=== PATIENT | female | born 1980 | race Caucasian/White ===

== ENCOUNTER 2019-02-22 20:26 | Emergency (ER) | payer SELFPAY ==
--- NOTE | 2019-02-22 21:25 | ED Physician Documentation ---
PD HPI UPPER EXT INJURY - Stated complaint Stated Complaint: HAND LAC - Chief complaint Chief Complaint: Laceration - History obtained from History obtained from: Patient - History of Present Illness Location: Right, Hand Type of injury: Laceration Timing - onset: Enter time (19:30), Today Timing - details: Abrupt onset Pain level now: 4 Associated symptoms: No: Numbness, Tingling Similar symptoms before: Has not had sx before Recently seen: Not recently seen - Additonal information Additional information: sustained right hand laceration on mandoline at approximately 7:30 PM tonight. 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 : None HEENT: None Psych: None Musculoskeletal: None Derm: None - Past Surgical History Past Surgical History: Yes /MANPOWER DEVELOPMENT ADVISOR: section, Tubal ligation - Present Medications Home Medications: Ambulatory Orders Medication Instructions Recorded Confirmed Propranolol [Inderal] 40 mg PO DAILY 06/06/15 06/06/15 oxyCODONE/ACET 5/325 [Percocet 5 1 - 2 each PO Q6H PRN #20 tablet 06/06/15 mg/325 mg] - Allergies Allergies/Adverse Reactions: Allergies Allergy/AdvReac Type Severity Reaction Status Date / Time bupropion HCl * AdvReac Unknown Verified 02/22/19 20:31 [From Wellbutrin] tramadol AdvReac Anaphylaxis Verified 02/22/19 20:31 - Social History Does the pt smoke?: Yes Smoking Status: Current every day smoker Does the pt drink ETOH?: No Does the pt have substance abuse?: No - Immunizations Immunizations are current?: Yes - POLST Patient has POLST: No PD ED PE NORMAL - Vitals Vital signs reviewed: Yes - General General: Alert and oriented X 3, No acute distress, Well developed/nourished - Neuro Neuro: No motor deficit, No sensory deficit PD ED PE EXPANDED - Extremities SIDNEY UE/Hands Visual: 1 - laceration (crescentic laceration total length 2 cm) Results - Vitals Vitals: Vital Signs - 24 hr 02/22/19 02/22/19 20:31 22:20 Temperature 36.4 C L Heart Rate 76 70 Respiratory 18 16 Rate Blood Pressure 112/62 122/68 O2 Saturation 100 100 Oxygen O2 Source Room air Procedures - Laceration (location) Hand right Palmar Length in cm: 2 Wound type: Curved, Into subcut fat Neurovascular status: Sensory intact, Motor intact, Vascular intact Tendon involvement: Tendon intact Anesthesia: Lidocaine 1% Wound Preparation: Chlorhexadine Skin layer closure: Nylon, Running Other: Patient tolerated well, No complications, Neurovascular intact, Dressing applied, Tetanus UTD Complexity: Simple PD MEDICAL DECISION MAKING - ED course Complexity details: considered differential, d/w patient Departure - Departure Disposition: 01 Home, Self Care Clinical Impression: Laceration Condition: Good Instructions: ED Laceration Hand Comments: Follow up with your primary care provider in 7-10 days for removal of the stitches Forms: Activity restrictions Discharge Date/Time: 02/22/19 22:22
[2019-02-22] MEDS ORDERED: LIDOCAINE 1% 2 ML VIAL SUBQ STA (21:30)
[2019-02-22] MEDS ORDERED: TETANUS/DIPHTHERIA/PERTUSSIS 0.5 ML SYRINGE IM ONE (21:36)
[2019-02-22] MEDS ORDERED: BACITRACIN ZINC OINT 1 PACKET TOP STA (22:12)
[2019-02-22 22:34] VITALS: BP 122/68
== END 2019-02-22 22:22 | disposition home or self-care (01) ==
LOC: ED 20:26
DX: S61.411A Laceration without foreign body of right hand, initial encounter (principal); W27.4XXA Contact with kitchen utensil, initial encounter; Y93.G1 Activity, food preparation and clean up; I10 Essential (primary) hypertension; F17.200 Nicotine dependence, unspecified, uncomplicated
CPT/HCPCS: 12001; 99282; A9270

== ENCOUNTER 2020-05-04 20:42 | Emergency (ER) | payer BC ==
[2020-05-04 20:55] VITALS: BP 127/83
[2020-05-04 21:20] LABS: BILIRUBIN,URINE NEGATIVE (NEGATIVE); GLUCOSE, URINE (UA) NEGATIVE (NEGATIVE); KETONES,URINE (UA) TRACE mg/dL (NEGATIVE); LEUKOCYTE ESTERASE, URINE NEGATIVE (NEGATIVE); NITRITE,URINE NEGATIVE (NEGATIVE); OCCULT BLOOD,URINE NEGATIVE (NEGATIVE); PH,URINE 6.5 PH (5.0-7.5); PROTEIN,URINE NEGATIVE (NEGATIVE); UROBILINOGEN,URINE 0.2 (NORMAL) E.U./dL (NORMAL)
[2020-05-04 21:21] LABS: CLARITY,URINE CLEAR (CLEAR); HCG UR QUAL NEGATIVE
[2020-05-04 21:25] LABS: BASOPHILS % (AUTO) 0.3 %; EOSINOPHILS # (AUTO) 0.4 10^3/uL (0.0-0.7); EOSINOPHILS % (AUTO) 3.7 %; HCT - HEMATOCRIT 38.9 % (37.0-47.0); LYMPHOCYTES # (AUTO) 2.7 10^3/uL (1.5-3.5); LYMPHOCYTES % (AUTO) 27.7 %; MEAN CORPUSCULAR HEMOGLOBIN 32.2 pg (27.0-31.0); MEAN CORPUSCULAR HGB CONC 33.4 g/dL (32.0-36.0); MEAN CORPUSCULAR VOLUME 96.3 fL (81.0-99.0); MEAN PLATELET VOLUME 10.1 fL (7.9-10.8); MONOCYTES # (AUTO) 0.5 10^3/uL (0.0-1.0); MONOCYTES % (AUTO) 5.4 %; NEUTROPHILS # (AUTO) 6.2 10^3/uL (1.5-6.6); NEUTROPHILS % (AUTO) 62.7 %; PLT - PLATELET COUNT 199 10^3/uL (130-450); RED BLOOD COUNT 4.04 10^6/uL (4.20-5.40); RED CELL DISTRIBUTION WIDTH 12.3 % (12.0-15.0); WHITE BLOOD COUNT 9.8 x10^3/uL (4.8-10.8)
--- NOTE | 2020-05-04 21:37 | ED Physician Documentation ---
History of Present Illness - Chief complaint Chief Complaint: General - Additonal information Additional information: Patient comes emergency department chief complaint of generalized weakness and not feeling well after sleeping only 2 of the last 4 nights. 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 Patient states that she has been getting very little sleep, because she has been having to do so much work on her personal business. Patient states that she also has not been eating much because her stomach has been upset because the stress. She also states that she does not have time to drink much water and so she thinks she may be somewhat dehydrated on top of everything. Patient states she is mainly here because she feels as though she needs to take a little time off work and have a rest. She denies any focal weakness. She states that 2 days ago, she was carrying a vacuum strapped to her back when she suddenly felt generally weak in her knees buckled. The patient states that it only lasted for a couple seconds and then she was able to get right back up, but she has been feeling a little lightheaded and just generally tired since. No fevers or chills. No nausea or vomiting. She states when she tries to eat her stomach goes in knots. No abdominal pain. No dysuria. No cough. No other complaints at this time. Review of Systems Ten Systems: 10 systems reviewed and negative Constitutional: reports: Fatigue Eyes: reports: Reviewed and negative Ears: reports: Reviewed and negative Nose: reports: Reviewed and negative Throat: reports: Reviewed and negative Cardiac: reports: Reviewed and negative Respiratory: reports: Reviewed and negative GI: reports: Reviewed and negative : reports: Reviewed and negative Skin: reports: Reviewed and negative Musculoskeletal: reports: Reviewed and negative Neurologic: reports: Generalized weakness. denies: Focal weakness Psychiatric: reports: Reviewed and negative Endocrine: reports: Reviewed and negative Immunocompromised: reports: Reviewed and negative PD PAST MEDICAL HISTORY - Past Medical History Cardiovascular: Hypertension Respiratory: None Neuro: Seizure disorder Endocrine/Autoimmune: None GI: None NUTRITIONAL SERVICES COOK: None : None HEENT: None Psych: None Musculoskeletal: None Derm: None - Past Surgical History Past Surgical History: Yes /NUTRITIONAL SERVICES COOK: section, Tubal ligation - Present Medications Home Medications: Ambulatory Orders Medication Instructions Recorded Confirmed Propranolol [Inderal] 40 mg PO DAILY 06/06/15 06/06/15 oxyCODONE/ACET 5/325 [Percocet 5 1 - 2 each PO Q6H PRN #20 tablet 06/06/15 mg/325 mg] ARIPiprazole [Abilify Mycite] 15 mg PO DAILY 05/04/20 05/04/20 Dextroamphetamine/Amphetamine 10 mg PO DAILY 05/04/20 05/04/20 [Adderall 10 mg Tablet] lamoTRIgine [LaMICtal] 100 mg PO DAILY 05/04/20 05/04/20 traZODone [Desyrel] 50 mg PO DAILY 05/04/20 05/04/20 - Allergies Allergies/Adverse Reactions: Allergies Allergy/AdvReac Type Severity Reaction Status Date / Time bupropion HCl * AdvReac Unknown Verified 05/04/20 20:49 [From Wellbutrin] tramadol AdvReac Anaphylaxis Verified 05/04/20 20:49 - Social History Does the pt smoke?: No Smoking Status: Never smoker Does the pt drink ETOH?: No Does the pt have substance abuse?: No Substance Use and Type: Marijuana - Immunizations Immunizations are current?: Yes Immunizations: TDAP current <10years - POLST Patient has POLST: No PD ED PE NORMAL - Vitals Vital signs reviewed: Yes - General General: Alert and oriented X 3, No acute distress, Other (Thin woman, otherwise well-appearing, in no apparent distress.) - HEENT HEENT: Atraumatic, PERRL, EOMI, Moist mucous membranes - Neck Neck: Supple, no meningeal sign - Cardiac Cardiac: RRR, No murmur, Strong equal pulses - Respiratory Respiratory: No respiratory distress, Clear bilaterally - Abdomen Abdomen: Soft, Non tender, Non distended - Derm Derm: Normal color, Warm and dry, No rash - Extremities Extremities: No deformity - Neuro Neuro: Alert and oriented X 3 - Psych Psych: Normal mood, Normal affect Results - Vitals Vitals: Vital Signs - 24 hr 05/04/20 05/04/20 20:49 21:03 Temperature 36.5 C 36.5 C Heart Rate 72 72 Respiratory 16 16 Rate Blood Pressure 127/83 H 127/83 H O2 Saturation 98 98 Oxygen O2 Source Room air - Labs Labs: Laboratory Tests 05/04/20 05/04/20 05/04/20 21:01 21:08 21:18 WBC 9.8 RBC 4.04 L Hgb 13.0 Hct 38.9 MCV 96.3 MCH 32.2 H MCHC 33.4 RDW 12.3 Plt Count 199 MPV 10.1 Neut # (Auto) 6.2 Lymph # (Auto) 2.7 [place] # (Auto) 0.5 Eos # (Auto) 0.4 Baso # (Auto) 0.0 Absolute Nucleated RBC 0.00 Nucleated RBC % 0.0 POC Whole Bld Glucose 112 H Urine Color YELLOW Urine Clarity CLEAR Urine pH 6.5 Ur Specific [place] 1.020 Urine Protein NEGATIVE Urine Glucose (UA) NEGATIVE Urine Ketones TRACE Urine Occult Blood NEGATIVE Urine Nitrite NEGATIVE Urine Bilirubin NEGATIVE Urine Urobilinogen 0.2 (NORMAL) Ur Leukocyte Esterase NEGATIVE Ur Microscopic Review NOT INDICATED Urine Culture Comments NOT INDICATED Urine HCG, Qual NEGATIVE PD MEDICAL DECISION MAKING - ED course Complexity details: considered differential, d/w patient ED course: I discussed with the patient that it is very important for her to get enough sleep and to be sure to get good nutrition and drink plenty of water. The patient has not been doing any of these things, and I suspect her symptoms are most likely secondary to all of this. 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 She states that she has 2 days off after tomorrow and thinks that she can get rested enough to feel ready to go back to work after the weekend. I feel this is reasonable as the patient is overall fairly well-appearing. We have also discussed the importance of basic health principles including exercise and maintenance of her health. We discussed the usual indications for return and the need for follow-up in primary care. Departure - Departure Disposition: 01 Home, Self Care Clinical Impression: Problems related to lack of adequate sleep, Generalized weakness Condition: Stable Instructions: ED Insomnia, ED Weakness [facility] Follow-Up: Javier Gutierrez MD [Credentialed Staff Provider] - Forms: Activity restrictions
[2020-05-04 21:38] LABS: ALBUMIN 4.5 g/dL (3.2-5.5); ALBUMIN/GLOBULIN RATIO 1.6 (1.0-2.2); BILIRUBIN,TOTAL 0.4 mg/dL (0.2-1.0); CALCIUM 9.9 mg/dL (8.5-10.3); CREATININE 0.9 mg/dL (0.4-1.0); POTASSIUM 3.9 mmol/L (3.5-5.0); TOTAL PROTEIN 7.3 g/dL (6.7-8.2)
== END 2020-05-04 21:42 | disposition home or self-care (01) ==
LOC: ED 20:42
DX: R53.1 Weakness (principal); Z72.820 Sleep deprivation; I10 Essential (primary) hypertension
CPT/HCPCS: 36415; 80053; 81001; 81003; 81025; 85025; 87086; 99283; 99284

== ENCOUNTER 2020-09-20 19:35 | Emergency (ER) | payer OTHER, BC ==
[2020-09-20 19:47] VITALS: BP 107/70
[2020-09-20] MEDS ORDERED: KETOROLAC 60 MG/2 ML VIAL IM STA (20:29)
--- NOTE | 2020-09-20 20:32 | ED Physician Documentation ---
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 It occurred when she was making a bed. She denies any previous history of low back pain. No recent falls or trauma. No fevers. No saddle anesthesia or loss of bowel or bladder function. Past medical history includes a seizure disorder for which she takes Lamictal. Review of Systems Constitutional: reports: Reviewed and negative Ears: reports: Reviewed and negative Nose: reports: Reviewed and negative Throat: reports: Reviewed and negative Cardiac: reports: Reviewed and negative Respiratory: reports: Reviewed and negative GI: reports: Reviewed and negative : reports: Reviewed and negative Skin: reports: Reviewed and negative Musculoskeletal: reports: Back pain Neurologic: reports: Reviewed and negative PD PAST MEDICAL HISTORY - Past Medical History Cardiovascular: Hypertension Respiratory: None Neuro: Seizure disorder Endocrine/Autoimmune: None GI: None 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 : None HEENT: None Psych: None Musculoskeletal: None Derm: None - Past Surgical History Past Surgical History: Yes /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: section, Tubal ligation - Present Medications Home Medications: Ambulatory Orders Medication Instructions Recorded Confirmed Propranolol [Inderal] 40 mg PO DAILY 06/06/15 06/06/15 oxyCODONE/ACET 5/325 [Percocet 5 1 - 2 each PO Q6H PRN #20 tablet 06/06/15 mg/325 mg] ARIPiprazole [Abilify Mycite] 15 mg PO DAILY 05/04/20 05/04/20 Dextroamphetamine/Amphetamine 10 mg PO DAILY 05/04/20 05/04/20 [Adderall 10 mg Tablet] lamoTRIgine [LaMICtal] 100 mg PO DAILY 05/04/20 05/04/20 traZODone [Desyrel] 50 mg PO DAILY 05/04/20 05/04/20 Ibuprofen [Motrin] 600 mg PO Q6H PRN #30 tab 09/20/20 methocarbamoL [Methocarbamol] 750 mg PO BID PRN #30 tablet 09/20/20 - Allergies Allergies/Adverse Reactions: Allergies Allergy/AdvReac Type Severity Reaction Status Date / Time bupropion HCl * AdvReac Unknown Verified 09/20/20 19:47 [From Wellbutrin] tramadol AdvReac Anaphylaxis Verified 09/20/20 19:47 - Social History Does the pt smoke?: No Smoking Status: Never smoker Does the pt drink ETOH?: No Does the pt have substance abuse?: No - Immunizations Immunizations are current?: Yes Immunizations: TDAP current <10years - POLST Patient has POLST: No PD ED PE EXPANDED - General General: Alert, No acute distress - Cardiac Cardiac: Regular Rate, Radial strong equal, Cap refill < 2 sec - Respiratory Respiratory: Clear to ausultation rosa. No: Distress, Labored - Abdomen Abdomen: Normal Bowel sounds. No: Tender to palpation - Back Back: Soft tissue tenderness (left paraspinous tenderness to palpation. Most focal tenderness at left SI point. Lower extremities. Able to walk on heels and toes independently. motor strength 5/5 BLE. no parathesias. ), Straight leg raise + L. 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 No history of similar in the past. No red flags on exam. Her exam is relatively reassuring but its not likely that she can continue her duties as there are no restrictions I would allow her to continue to work. Patient was given a shot of Toradol here in the Emergency department which did improve her symptoms. she will be dc with a rx for methocarbimol and ibuprofen. no work 09/20/20-09/22/20. f/u at the walk in clinic on the at the walk- in clinic for revaluation of her symptoms new APF, return to duty rx. emergent return precautions discussed Departure - Departure Disposition: 01 Home, Self Care Clinical Impression: Low back pain with left-sided sciatica Qualifiers: Chronicity: acute Back pain laterality: left Qualified Code(s): M54.42 - Lumbago with sciatica, left side Condition: Stable Record reviewed to determine appropriate education?: Yes Instructions: ED Sprain Strain Lumbar, ED Low Back Pain Injury, ED Sciatica Prescriptions: methocarbamoL [Methocarbamol] 750 mg PO BID PRN #30 tablet PRN Reason: Spasms Ibuprofen [Motrin] 600 mg PO Q6H PRN #30 tab PRN Reason: Pain Comments: I hope your back is feeling better soon please fill the prescription for the ibuprofen and methocarbimol. no work 09/20/20-09/22/20. Please go to one of our walk in clinics for reevaluation and return to work prescription on Friday the . Gentle stretching, and ice or heat on the low back; which ever feels better. Return here for fevers, numbness or tingling between yoru legs or sudden weakness
== END 2020-09-20 20:56 | disposition home or self-care (01) ==
LOC: ED 19:35
DX: M54.42 Lumbago with sciatica, left side (principal); X50.9XXA Other and unspecified overexertion or strenuous movements or postures, initial encounter; Y93.E9 Activity, other interior property and clothing maintenance; Y92.239 Unspecified place in hospital as the place of occurrence of the external cause; Y99.0 Civilian activity done for income or pay; I10 Essential (primary) hypertension
CPT/HCPCS: 96372; 99283

== ENCOUNTER 2020-09-25 06:40 | Emergency (ER) | payer OTHER, BC ==
[2020-09-25 06:48] VITALS: BP 117/67
--- NOTE | 2020-09-25 06:57 | ED Physician Documentation ---
History of Present Illness - Stated complaint Stated Complaint: Back to WORK NOTE REQUEST - Chief complaint Chief Complaint: General - History obtained from History obtained from: Patient - Additonal information Additional information: 40-year-old woman presents for medical evaluation to return to work. She states that she was given time off after sustaining a left lower back strain a few days ago. It resolved after 2 days and she is now asymptomatic. Patient denies numbness, weakness, incontinence, retention, fever, saddle anesthesia. 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 : None HEENT: None Psych: None Musculoskeletal: None Derm: None - Past Surgical History Past Surgical History: Yes /BRIDGE MANAGER: section, Tubal ligation - Present Medications Home Medications: Ambulatory Orders Medication Instructions Recorded Confirmed Propranolol [Inderal] 40 mg PO DAILY 06/06/15 09/25/20 oxyCODONE/ACET 5/325 [Percocet 5 1 - 2 each PO Q6H PRN #20 tablet 06/06/15 09/25/20 mg/325 mg] ARIPiprazole [Abilify Mycite] 15 mg PO DAILY 05/04/20 09/25/20 Dextroamphetamine/Amphetamine 10 mg PO DAILY 05/04/20 09/25/20 [Adderall 10 mg Tablet] lamoTRIgine [LaMICtal] 100 mg PO DAILY 05/04/20 09/25/20 traZODone [Desyrel] 50 mg PO DAILY 05/04/20 09/25/20 Ibuprofen [Motrin] 600 mg PO Q6H PRN #30 tab 09/20/20 09/25/20 methocarbamoL [Methocarbamol] 750 mg PO BID PRN #30 tablet 09/20/20 09/25/20 - Allergies Allergies/Adverse Reactions: Allergies Allergy/AdvReac Type Severity Reaction Status Date / Time bupropion HCl * AdvReac Unknown Verified 09/25/20 06:48 [From Wellbutrin] tramadol AdvReac Anaphylaxis Verified 09/25/20 06:48 - Social History Does the pt smoke?: No Smoking Status: Never smoker Does the pt drink ETOH?: No Does the pt have substance abuse?: No - Immunizations Immunizations are current?: Yes Immunizations: TDAP current <10years - POLST Patient has POLST: No PD ED PE NORMAL - Vitals Vital signs reviewed: Yes - General General: Alert and oriented X 3, No acute distress, Well developed/nourished - HEENT HEENT: Atraumatic, PERRL, EOMI - Neck Neck: No bony TTP - Respiratory Respiratory: No respiratory distress, Clear bilaterally - Back Back: No CVA TTP, No spinal TTP, Other (no flank tenderness or paraspinal tenderness) - Derm Derm: Normal color, Warm and dry - Extremities Extremities: No deformity, Normal ROM s pain, Other (2+ bilateral DP and PT pulses. Normal sensation, capillary refill, strength to BLLE) - Neuro Neuro: Alert and oriented X 3, No motor deficit, No sensory deficit - Psych Psych: Normal mood, Normal affect Results - Vitals Vitals: Vital Signs - 24 hr 09/25/20 06:40 Temperature 36.8 C Heart Rate 89 Respiratory 14 Rate Blood Pressure 117/67 O2 Saturation 100 Oxygen O2 Source Room air PD MEDICAL DECISION MAKING - ED course ED course: 40-year-old woman presents for medical clearance to return to work. She is asymptomatic at this time and has a normal physical exam. Return precautions given. Will clear at this time. Departure - Departure Disposition: 01 Home, Self Care Clinical Impression: Encounter for medical screening examination Condition: Good Instructions: ED Screening Exam Medical Nonurgent Comments: You were seen in the emergency department for clearance to go back to work. You may return to work with no restrictions. Return to the emergency department if you have any new or worsening symptoms or other concerns. Follow-up with your primary doctor as needed. Forms: Activity restrictions
== END 2020-09-25 06:57 | disposition home or self-care (01) ==
LOC: ED 06:40
DX: Z02.89 Encounter for other administrative examinations (principal); S39.012A Strain of muscle, fascia and tendon of lower back, initial encounter; X58.XXXA Exposure to other specified factors, initial encounter; I10 Essential (primary) hypertension
CPT/HCPCS: 99281

== ENCOUNTER 2021-07-13 12:51 | Emergency (ER) | payer SELFPAY ==
[2021-07-13 12:58] VITALS: BP 135/74
[2021-07-13] MEDS ORDERED: oxyCODONE 5 MG TABLET PO STA (13:06)
--- NOTE | 2021-07-13 13:08 | ED Physician Documentation ---
PD HPI UPPER EXT INJURY - Stated complaint Stated Complaint: R SHOULDER PX - Chief complaint Chief Complaint: Ext Problem - History obtained from History obtained from: Patient - Additonal information Additional information: Had a severe shoulder injury 12 years ago with fractures and rotator cuff damage. He was treated conservatively. 2 weeks ago after sleeping wrong she developed severe superoposterior shoulder pain with limited range of motion. Pain is not responsive to ibuprofen and Excedrin. Review of Systems Constitutional: reports: Reviewed and negative Eyes: reports: Reviewed and negative : denies: Now [facility] PAST MEDICAL HISTORY - Past Medical History Cardiovascular: Hypertension Respiratory: None Neuro: Seizure disorder Endocrine/Autoimmune: None GI: None COST ACCOUNTING CLERK: None : None HEENT: None Psych: None Musculoskeletal: None Derm: None - Past Surgical History Past Surgical History: Yes /COST ACCOUNTING CLERK: section, Tubal ligation - Present Medications Home Medications: Ambulatory Orders Medication Instructions Recorded Confirmed Propranolol [Inderal] 40 mg PO DAILY 06/06/15 09/25/20 oxyCODONE/ACET 5/325 [Percocet 5 1 - 2 each PO Q6H PRN #20 tablet 06/06/15 09/25/20 mg/325 mg] ARIPiprazole [Abilify Mycite] 15 mg PO DAILY 05/04/20 09/25/20 Dextroamphetamine/Amphetamine 10 mg PO DAILY 05/04/20 09/25/20 [Adderall 10 mg Tablet] lamoTRIgine [LaMICtal] 100 mg PO DAILY 05/04/20 09/25/20 traZODone [Desyrel] 50 mg PO DAILY 05/04/20 09/25/20 Ibuprofen [Motrin] 600 mg PO Q6H PRN #30 tab 09/20/20 09/25/20 methocarbamoL [Methocarbamol] 750 mg PO BID PRN #30 tablet 09/20/20 09/25/20 Oxycodone HCl/Acetaminophen 1 - 2 each PO Q6H PRN #20 tablet 07/13/21 [Percocet 5-325 mg Tablet] - Allergies Allergies/Adverse Reactions: Allergies Allergy/AdvReac Type Severity Reaction Status Date / Time bupropion HCl * AdvReac Unknown Verified 07/13/21 12:58 [From Wellbutrin] tramadol AdvReac Anaphylaxis Verified 07/13/21 12:58 - Social History Does the pt smoke?: No Smoking Status: Never smoker Does the pt drink ETOH?: No Does the pt have substance abuse?: No - Immunizations Immunizations are current?: Yes Immunizations: TDAP current <10years - POLST Patient has POLST: No PD ED PE NORMAL - Vitals Vital signs reviewed: Yes - General General: Alert and oriented X 3, No acute distress - HEENT HEENT: PERRL, EOMI - Neck Neck: Supple, no meningeal sign, No bony TTP - Extremities Extremities: Other (Right shoulder is mildly tender posteriorly and over the glenohumeral joint. She is able to abduct to about 90 degrees, better passively with positive supraspinatus testing. NVI in the hand.) - Neuro Neuro: Alert and oriented X 3, Normal speech Results - Vitals Vitals: Vital Signs - 24 hr 07/13/21 12:53 Temperature 36.5 C Heart Rate 97 Respiratory 16 Rate Blood Pressure 135/74 H O2 Saturation 100 Oxygen O2 Source Room air - Rads (name of study) Three-view x-ray of right shoulder: Rotator cuff calcific tendinopathy Radiology: EMP read contemporaneously PD MEDICAL DECISION MAKING - ED course ED course: 41-year-old woman with an exacerbation of chronic right shoulder pain which based on history and physical is likely related to the rotator cuff. X-ray consistent with same. She was given some pain medication we discussed his to prevent frozen shoulder and orthopedic follow-up. I am prescribing a short course of short-acting opioid pain medication for this patient. 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 I have discussed that the opioids are for short term therapy only, and will not be refilled from the ED. Departure - Departure Disposition: 01 Home, Self Care Clinical Impression: Rotator cuff arthropathy of right shoulder Condition: Good Record reviewed to determine appropriate education?: Yes Instructions: ED Torn Rotator Cuff Follow-Up: Orthopedic Care [Provider Group] Prescriptions: Oxycodone HCl/Acetaminophen [Percocet 5-325 mg Tablet] 1 - 2 each PO Q6H PRN #20 tablet PRN Reason: pain Comments: I sent your prescriptions electronically to [facility] in [place]. As discussed, do not stay in the sling all the time and do the range of motion exercises we discussed and I showed you to prevent frozen joint. As discussed, based on the history and exam it is likely that you probably have a torn rotator cuff on the right. I am prescribing some pain medication and its okay to do gentle range of motion and continue physical therapy but you probably should follow-up with an orthopedist for consideration of further evaluation and treatment. Call today or Friday for the next available appointment. The number is above on this form. I am prescribing a short course of narcotic pain medication for you. These are potentially dangerous and addictive medications that should be used carefully. These medications may constipate you. Take an eimk-cbn-unondcj stool softener (docusate) twice daily with plenty of water while taking these medications. If you go 24 hours without a bowel movement, take fukj-ayx-[id number] miralax, per package instructions. Do not drink or drive while taking these medications. If you received narcotic or sedating medications while in the emergency department, do not drive for 24 hours. Store this medication in a safe, secure place and out of reach of children. It is a violation of federal law to give or sell this medication to another rson or to use in a manner other than prescribed. The ED will not refill narcotic prescriptions, including prescriptions lost or stolen. To dispose of unwanted medications: 1. [facility] at [address] in [place] has a medication drop box. They accept prescription medications (in pill form) Friday through Friday 9:00 a.m. to 5:00 p.m. 2. The [facility] [employer] accepts prescription medications (in pill form only) for disposal year round. Call for more information. 3. Contact the [facility] for the next [facility] sponsored prescription drug collection event. , [phone], or [phone]; Note that many narcotic pain relievers also contain Tylenol/acetaminophen. Please ensure that your total dose of acetaminophen from all sources does not exceed 3 g (3000 mg) per day.
--- NOTE | 2021-07-13 13:29 | XRAY Report ---
PROCEDURE: Shoulder 3 View RT INDICATIONS: shoulder pain TECHNIQUE: 3 views of the shoulder were acquired. COMPARISON: None. FINDINGS: Bones: No acute fractures or dislocations. No suspicious bony lesions. Visualized ribs appear inta ct. Soft tissues: Small calcifications and ossifications adjacent to the greater tuberosity may be secon rush to prior trauma and/or calcific tendinopathy. IMPRESSION: Rotator cuff calcific tendinopathy. No acute osseous abnormality. If symptoms persist or there is continued clinical concern, further evaluation with MRI or CT may be helpful. Reviewed by: Daren Malone MD on 07/13/2021 1:27 PM PDT Approved by: Daren Malone MD on 07/13/2021 1:27 PM PDT Station ID: [id number]
--- OUTSIDE RECORDS SUMMARY | 2021-07-13 13:37 | EXTERNAL MEDICAL SUMMARY RPT | Continuity of Care Document ---
:1980 Author Organization [facility] Address [address] [place] [address] Phone Care Team Providers Name Role Phone Jules Ramirez Unavailable Unavailable Allergies No information. Encounters No information. Medications date description facility [id number] Sertraline 25 MG Oral Tablet [facility] [id number] Amphetamine aspartate 5 MG / Amphetamine Sulfate 5 MG / [facility] Dextroamphetamine saccharate 5 MG / Dext roamphetamine Sulfate 5 MG Oral Tablet [id number] Amphetamine aspartate 5 MG / Amphetamine Sulfate 5 MG / [facility] Dextroamphetamine saccharate 5 MG / Dext roamphetamine Sulfate 5 MG Oral Tablet [id number] Sertraline 25 MG Oral Tablet [facility] [id number] Alprazolam 0.25 MG Oral Tablet [facility] [id number] Amphetamine aspartate 5 MG / Amphetamine Sulfate 5 MG / [facility] Dextroamphetamine saccharate 5 MG / Dext roamphetamine Sulfate 5 MG Oral Tablet [id number] aripiprazole 15 MG Oral Tablet [facility] Problems Procedures date description facility [id number] [facility] [id number] [facility] [id number] [facility] [id number] [facility] [id number] [facility] [id number] [facility] [id number] [facility] [id number] [facility] [id number] [facility] Results No information.
== END 2021-07-13 13:36 | disposition home or self-care (01) ==
LOC: ED 12:51
DX: M12.511 Traumatic arthropathy, right shoulder (principal)
CPT/HCPCS: 73030; 99282; 99283; A9270

== ENCOUNTER 2023-03-03 20:14 | Emergency (ER) | payer BC, OTHER ==
[2023-03-03] MEDS ORDERED: LIDOCAINE-EPINEPH-TETRACAINE 3 ML SYRINGE TOP STA (20:38)
[2023-03-03] MEDS ORDERED: TETANUS/DIPHTHERIA/PERTUSSIS 0.5 ML SYRINGE IM ONE (20:38)
--- NOTE | 2023-03-03 20:49 | ED Physician Documentation ---
PD HPI HEAD INJURY - Stated complaint Stated Complaint: FELL DOWN STAIRS - Chief complaint Chief Complaint: Trauma Ext - History obtained from History obtained from: Patient - Additional information Additional information: Patient is a 42-year-old female presenting for evaluation after head injury she sustained from falling down 4-5 stairs this evening. Patient reports she has been drinking with her roommates today and is she is unsure why she fell. She reports she is unclear whether she had any LOC. A friend at the bedside states that she was awake when they came to her attention but he did not directly witness her fall, they were in another room and heard her fall. Patient does have a small laceration above the right eyebrow. She is unsure of her last tetanus. She does not take any blood thinners. Reports having chronic right shoulder pain which is unchanged today and has good range of motion. Review of Systems Constitutional: denies: Fever Cardiac: denies: Chest pain / pressure Respiratory: denies: Dyspnea GI: denies: Abdominal Pain Neurologic: reports: Head injury PD PAST MEDICAL HISTORY - Past Medical History Past Medical History: No Cardiovascular: Hypertension Respiratory: None Neuro: Seizure disorder Endocrine/Autoimmune: None GI: None STABLEHAND: None : None HEENT: None Psych: None Musculoskeletal: None Derm: None - Past Surgical History Past Surgical History: Yes /STABLEHAND: section, Tubal ligation - Present Medications Home Medications: Ambulatory Orders Medication Instructions Recorded Confirmed Propranolol [Inderal] 40 mg PO DAILY 06/06/15 09/25/20 oxyCODONE/ACET 5/325 [Percocet 5 1 - 2 each PO Q6H PRN #20 tablet 06/06/15 09/25/20 mg/325 mg] ARIPiprazole [Abilify Mycite] 15 mg PO DAILY 05/04/20 09/25/20 Dextroamphetamine/Amphetamine 10 mg PO DAILY 05/04/20 09/25/20 [Adderall 10 mg Tablet] lamoTRIgine [LaMICtal] 100 mg PO DAILY 05/04/20 09/25/20 traZODone [Desyrel] 50 mg PO DAILY 05/04/20 09/25/20 Ibuprofen [Motrin] 600 mg PO Q6H PRN #30 tab 09/20/20 09/25/20 methocarbamoL [Methocarbamol] 750 mg PO BID PRN #30 tablet 09/20/20 09/25/20 Oxycodone HCl/Acetaminophen 1 - 2 each PO Q6H PRN #20 tablet 07/13/21 [Percocet 5-325 mg Tablet] - Allergies Allergies/Adverse Reactions: Allergies Allergy/AdvReac Type Severity Reaction Status Date / Time bupropion HCl * AdvReac Unknown Verified 03/03/23 20:17 [From Wellbutrin] tramadol AdvReac Anaphylaxis Verified 03/03/23 20:17 - Social History Does the pt smoke?: No Smoking Status: Never smoker Does the pt drink ETOH?: No Does the pt have substance abuse?: No - Immunizations Immunizations are current?: Yes Immunizations: TDAP current <10years - POLST Patient has POLST: No PD ED PE NORMAL - General General: Alert and oriented X 3, No acute distress, Well developed/nourished - HEENT HEENT: PERRL, EOMI, Moist mucous membranes, Pharynx benign, Other (1 cm laceration above R eyebrow) - Neck Neck: Supple, no meningeal sign, No bony TTP - Cardiac Cardiac: RRR, Strong equal pulses - Respiratory Respiratory: No respiratory distress, Clear bilaterally - Abdomen Abdomen: Soft, Non tender, Non distended - Derm Derm: Warm and dry - Extremities Extremities: No deformity, No tenderness to palpate, Normal ROM s pain, Other (Contusion to R forearm) - Neuro Neuro: Alert and oriented X 3, trap puller 2-12 intact, No motor deficit, No sensory deficit, Normal speech Eye Opening: Spontaneous Motor: Obeys Commands Verbal: Oriented GCS Score: 15 Results - Vitals Vitals: Vital Signs - 24 hr 03/03/23 03/03/23 20:17 22:59 Temperature 36.5 C Heart Rate 93 84 Respiratory 16 16 Rate Blood Pressure 129/85 H 106/62 O2 Saturation 100 97 Oxygen O2 Source Room air Procedures - Laceration (location) R forehead Length in cm: 1.5 Wound type: Linear, Clean Anesthesia: LET Wound preparation: Hibiclens, Irrigated copiously NS Skin layer closure: Interrupted, Size #-0 - enter number (Ethilon 4-0), Sutures - enter # (3) Other: Patient tolerated well, No complications, Neurovascular intact, Tetanus booster given PD Medical Decision Making - ED course Complexity details: reviewed results, re-evaluated patient, d/w patient ED course: Patient is a 42-year-old female presenting for evaluation after a fall down several steps. She does admit to alcohol use this evening and is a little bit fuzzy on the events. However she is answering questions appropriately her with clear speech and a normal steady gait. CT head and cervical spine were obtained given that she does admit to alcohol use and is unclear whether she had LOC. There is no signs of intracranial hemorrhage or fracture. She does have a small laceration to the right forehead that was sutured closed and patient is counseled on need for suture removal. Patient does have a contusion to the right proximal forearm but has good range of motion at all joints and declined x-rays. She is counseled on continued supportive care as well as need for follow-up With any worsening symptoms. Departure - Departure Disposition: 01 Home, Self Care Clinical Impression: Fall down stairs, Forehead laceration, Contusion of forearm, right Condition: Stable Instructions: ED Laceration Facial Sutr Tape Comments: You were evaluated after a fall downstairs. I have placed 3 stitches to close a laceration above your right eyebrow. These should stay in for 5 days and then you should return to the emergency department or walk-in clinic or to your doctor to have them removed. Your CAT scans of the head and the neck do not show any injuries from your fall. You do have a bruise to the right arm but it declined an x-ray tonight. If you have any worsening symptoms please consider close reevaluation. In the meanwhile I would recommend acetaminophen and ice to any areas of pain. I would also encourage you to limit your alcohol use as this could have been a contributing factor with your fall tonight. Forms: PCP List Discharge Date/Time: 03/03/23 23:14
[2023-03-03 23:05] VITALS: BP 106/62; O2SAT 97
--- NOTE | 2023-03-03 23:07 | CT Report ---
PROCEDURE: HEAD WO INDICATIONS: ETOH/head injury/ TECHNIQUE: Noncontrast 4.5 mm thick angled axial sections acquired from the foramen magnum to the vertex. For r adiation dose reduction, the following was used: automated exposure control, adjustment of mA and/or kV according to patient size. COMPARISON: None. FINDINGS: Image quality: Excellent. CSF spaces: Basal cisterns are patent. No extra-axial fluid collections. Ventricles are normal in size and shape. Brain: No midline shift. No intracranial masses or hemorrhage. Nolan-white matter interface is norm al. Skull and face: No subcutaneous edema and foci of gas are seen in the right frontal scalp. Calvarium and visualized facial bones are intact, without suspicious lesions. Sinuses: Visualized sinuses and mastoids are clear. IMPRESSION: 1.Right frontal scalp edema and foci of soft tissue gas, suspicious for laceration. 2.No acute intracranial abnormality. No skull fracture. Reviewed by: Daren Malone MD on 03/03/2023 11:06 PM PST Approved by: Daren Malone MD on 03/03/2023 11:06 PM PST Station ID: [id number]
--- NOTE | 2023-03-03 23:09 | CT Report ---
PROCEDURE: CERVICAL SPINE WO INDICATIONS: ETOH/head injury TECHNIQUE: Noncontrast 3 mm thick sections acquired from the skull base to the T4 level. Sagittal and coronal r eformats were then constructed. For radiation dose reduction, the following was used: automated exp osure control, adjustment of mA and/or kV according to patient size. COMPARISON: None. FINDINGS: Image quality: Excellent. Bones: No acute fractures or dislocations. Visualized superior ribs are intact. Multilevel spondyl osis is seen most prominent at C5-6. Soft tissues: Prevertebral soft tissues are normal in thickness. No paravertebral hematomas. No ap ical pneumothoraces. Mild centrilobular emphysema. IMPRESSION: No acute, displaced fracture or traumatic subluxation. Reviewed by: Daren Malone MD on 03/03/2023 11:08 PM PST Approved by: Daren Malone MD on 03/03/2023 11:08 PM PST Station ID: [id number]
== END 2023-03-03 23:14 | disposition home or self-care (01) ==
LOC: ED 20:14
DX: S01.81XA Laceration without foreign body of other part of head, initial encounter (principal); S50.11XA Contusion of right forearm, initial encounter; W10.9XXA Fall (on) (from) unspecified stairs and steps, initial encounter; I10 Essential (primary) hypertension; Z23 Encounter for immunization
CPT/HCPCS: 12011; 90471; 99283; 99284

== ENCOUNTER 2023-03-05 10:48 | Emergency (ER) | payer BC ==
[2023-03-05 11:18] VITALS: BP 137/89; O2SAT 100
--- NOTE | 2023-03-05 11:56 | XRAY Report ---
PROCEDURE: Elbow 3 View RT INDICATIONS: Trauma TECHNIQUE: 3 views of the elbow were acquired. COMPARISON: None. FINDINGS: Bones: Acute, transverse, extra-articular fracture of the radial head/neck. Query minimally displace d fracture of the coronoid process, best seen on lateral view. No suspicious bony lesions. Soft tissues: Moderate effusion. No suspicious soft tissue calcifications or masses. IMPRESSION: 1.Acute, transverse, extra-articular fracture of the radial head/neck. 2.Query minimally displaced fracture of the coronoid process, best seen on lateral view. 3.Moderate elbow joint effusion. Reviewed by: Romelia Zmabrano MD on 03/05/2023 11:55 AM PST Approved by: Romelia Zambrano MD on 03/05/2023 11:55 AM PST Station ID: [id number]
--- NOTE | 2023-03-05 11:58 | XRAY Report ---
PROCEDURE: Forearm RT INDICATIONS: Trauma TECHNIQUE: 2 views of the forearm were acquired. COMPARISON: Same day elbow radiograph. FINDINGS: Bones: No acute fracture or dislocation of the mid to distal radius or ulna. No suspicious bony lesi ons. Soft tissues: No suspicious soft tissue calcifications or masses. IMPRESSION: 1.No acute fracture or dislocation of the mid to distal radius or ulna. 2.Please see same day elbow radiograph for detailed description of radial head/neck and coronoid proc ess fractures which are also seen on this study. Reviewed by: Romelia Zambrano MD on 03/05/2023 11:56 AM PST Approved by: Romelia Zambrano MD on 03/05/2023 11:56 AM PST Station ID: [id number]
[2023-03-05] MEDS ORDERED: oxyCODONE 5 MG TABLET PO STA (12:38)
--- NOTE | 2023-03-05 12:42 | ED Physician Documentation ---
History of Present Illness - Stated complaint Stated Complaint: RT ARM PX - Chief complaint Chief Complaint: Trauma Ext - History obtained from History obtained from: Patient - History of Present Illness Pain level max: 7 Pain level now: 7 - Additonal information Additional information: Patient is a 42-year-old female who presents to the emergency department after a fall 2 days ago. Injured the right elbow. Complains of increasing pain today. Worse with movement, especially supination and pronation of the hand. Better with rest. Patient does not currently have any head, neck, back pain. No abdominal pain. No chest pain. No numbness or tingling. 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, Tubal ligation - Present Medications Home Medications: Ambulatory Orders Medication Instructions Recorded Confirmed ARIPiprazole [Abilify Mycite] 15 mg PO DAILY 05/04/20 03/05/23 Dextroamphetamine/Amphetamine 20 mg PO TID 05/04/20 03/05/23 [Adderall 10 mg Tablet] Ibuprofen [Motrin] 600 mg PO Q6H PRN #30 tab 09/20/20 03/05/23 ARIPiprazole [Aripiprazole] 15 mg PO DAILY 03/05/23 03/05/23 Oxycodone HCl/Acetaminophen 1 - 2 each PO Q6H PRN #14 tablet 03/05/23 [Percocet 5-325 mg Tablet] MDD 6 tabs - Allergies Allergies/Adverse Reactions: Allergies Allergy/AdvReac Type Severity Reaction Status Date / Time bupropion HCl * AdvReac Unknown Verified 03/05/23 11:05 [From Wellbutrin] tramadol AdvReac Anaphylaxis Verified 03/05/23 11:05 - Social History Does the pt smoke?: Yes Smoking Status: Current every day smoker Does the pt drink ETOH?: Yes ETOH Use: Liquor Does the pt have substance abuse?: No - Immunizations Immunizations are current?: Yes Immunizations: TDAP current <10years - POLST Patient has POLST: No PD ED PE NORMAL - Vitals Vital signs reviewed: Yes - General General: Alert and oriented X 3, No acute distress - HEENT HEENT: Atraumatic, Moist mucous membranes - Neck Neck: Supple, no meningeal sign - Respiratory Respiratory: No respiratory distress - Derm Derm: Warm and dry - Extremities Extremities: Other - Neuro Neuro: Alert and oriented X 3 - Free text exam Free text exam: There is tenderness over the right radial head. Pain with pronation and supination of the forearm. There is no other bony tenderness about the elbow, humerus or forearm. Neurovascular intact. No tenderness over the coronoid process. Full range of motion of the elbow without pain unless she is pronating and supinating the arm. Results - Vitals Vitals: Vital Signs - 24 hr 03/05/23 11:06 Temperature 36.8 C Heart Rate 85 Respiratory 16 Rate Blood Pressure 137/89 H O2 Saturation 100 Oxygen O2 Source Room air - Rads (name of study) Right forearm x-ray Relevant Findings:: Final report received, See rad report Right elbow x-ray Relevant Findings:: Final report received, See rad report PD Medical Decision Making - ED course Complexity details: reviewed results, re-evaluated patient, considered differential, d/w patient ED course: Patient with a nondisplaced radial head fracture. Placed in a sling for comfort. Will prescribe pain medication for home. Neurovascular intact. Patient has a question of a coronoid process fracture, she has no tenderness at this site and does have full range of motion of the elbow. Doubt that this is an acute fracture. No significant joint swelling on exam. Patient will follow- up with orthopedics for further care. Patient counseled regarding signs and symptoms for which I believe and urgent re-evaluation would be necessary. Patient with good understanding of and agreement to plan and is comfortable going home at this time This document was made in part using voice recognition software. While efforts are made to proofread this document, sound alike and grammatical errors may occur. Departure - Departure Disposition: 01 Home, Self Care Clinical Impression: Radial head fracture Qualifiers: Encounter type: initial encounter Fracture type: closed Fracture alignment: nondisplaced Laterality: right Qualified Code(s): S52.124A - Nondisplaced fracture of head of right radius, initial encounter for closed fracture Condition: Good Instructions: ED Fx Radial Head Follow-Up: [facility] [Provider Group] Prescriptions: Oxycodone HCl/Acetaminophen [Percocet 5-325 mg Tablet] 1 - 2 each PO Q6H PRN #14 tablet MDD 6 tabs PRN Reason: pain Comments: Your prescription was sent to [facility] in [place]. Please follow-up with orthopedics for further care. You should be in the sling for about a week. After that orthopedics will generally take you out of the sling and have you start moving your elbow. These fractures usually do not require any surgery. There was a question of a second fracture on your x-ray but you have no tenderness or pain at the site. Therefore it is unlikely that this is a true fracture. I am prescribing a short course of narcotic pain medication for you. These are potentially dangerous and addictive medications that should be used carefully. These medications may constipate you. Take an uomp-gxs-[id number] stool softener (docusate) twice daily with plenty of water while taking these medications. If you go 24 hours without a bowel movement, take jumy-sij-peysfvd miralax, per package instructions. Do not drink or drive while taking these medications. If you received narcotic or sedating medications while in the emergency department, do not drive for 24 hours. Store this medication in a safe, secure place and out of reach of children. It is a violation of federal law to give or sell this medication to another person or to use in a manner other than prescribed. The ED will not refill narcotic prescriptions, including prescriptions lost or stolen. To dispose of unwanted medications: 1. [facility] at [address] in [place] has a medication drop box. They accept prescription medications (in pill form) Friday through Friday 9:00 a.m. to 5:00 p.m. 2. [facility] [employer] accepts prescription medications (in pill form only) for disposal year round. Call for more information. 3. Contact the [facility] for the next [facility] sponsored prescription drug collection event. , [phone], or [phone]; Forms: PCP List
== END 2023-03-05 12:52 | disposition home or self-care (01) ==
LOC: ED 10:48
DX: S52.124A Nondisplaced fracture of head of right radius, initial encounter for closed fracture (principal); W19.XXXA Unspecified fall, initial encounter; F17.200 Nicotine dependence, unspecified, uncomplicated
CPT/HCPCS: 73080; 73090; 99283; A9270

== ENCOUNTER 2023-03-08 15:15 | Emergency (ER) | payer BC ==
--- NOTE | 2023-03-08 17:30 | ED Physician Documentation ---
PD HPI WOUND RECHECK - Stated complaint Stated Complaint: REMOVE STITCHES - Chief complaint Chief Complaint: General - Histroy obtained from History obtained from: Patient - History of Present Illness Location: [place] - onset: How many days ago (5) Associated symptoms: Other (pain in the right shoulder) Similar symptoms before: Diagnosis (laceration) Recently seen: Emergency Dept - Additional information Additional information: Abraham Ortiz is a 42-year-old female who fell down some stairs 5 days ago came into the emergency department and had sutures placed above her right eye. She ended up coming to the emergency department 2 days later with complaint of pain in her elbow that was severe and she was found to have fracture in the elbow she been placed into a sling and now she is complaining of pain in her right shoulder. She states that she usually has some pain in her right shoulder but it is waxing and waning in she now has persistent pain. 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, Tubal ligation - Present Medications Home Medications: Ambulatory Orders Medication Instructions Recorded Confirmed ARIPiprazole [Abilify Mycite] 15 mg PO DAILY 05/04/20 03/05/23 Dextroamphetamine/Amphetamine 20 mg PO TID 05/04/20 03/05/23 [Adderall 10 mg Tablet] Ibuprofen [Motrin] 600 mg PO Q6H PRN #30 tab 09/20/20 03/05/23 ARIPiprazole [Aripiprazole] 15 mg PO DAILY 03/05/23 03/05/23 Oxycodone HCl/Acetaminophen 1 - 2 each PO Q6H PRN #14 tablet 03/05/23 [Percocet 5-325 mg Tablet] MDD 6 tabs Oxycodone HCl/Acetaminophen 1 - 2 each PO Q6H PRN #14 tablet 03/08/23 [Percocet 5-325 mg Tablet] - Allergies Allergies/Adverse Reactions: Allergies Allergy/AdvReac Type Severity Reaction Status Date / Time bupropion HCl * AdvReac Unknown Verified 03/05/23 11:05 [From Wellbutrin] tramadol AdvReac Anaphylaxis Verified 03/05/23 11:05 - Social History Does the pt smoke?: Yes Smoking Status: Current every day smoker Does the pt drink ETOH?: Yes Does the pt have substance abuse?: No - Immunizations Immunizations are current?: Yes Immunizations: TDAP current <10years - POLST Patient has POLST: No PD ED PE NORMAL - Vitals Vital signs reviewed: Yes (hypertensive ) - General General: Alert and oriented X 3, No acute distress, Well developed/nourished - HEENT HEENT: PERRL, EOMI, Other (A laceration above the right eyebrow appears to be healing well without signs of infection sutures removed without dehiscence.) - Neck Neck: Supple, no meningeal sign, No bony TTP - Derm Derm: Normal color, Warm and dry, No rash - Extremities Extremities: No deformity, No edema, Other (pain to palp the right proximal humerus. the arm is in a sling. ) - Neuro Neuro: Alert and oriented X 3, lean manufacturing specialist 2-12 intact, No motor deficit, No sensory deficit, Normal speech Eye Opening: Spontaneous Motor: Obeys Commands Verbal: Oriented GCS Score: 15 - Psych Psych: Normal mood, Normal affect Results - Vitals Vitals: Vital Signs - 24 hr 03/08/23 03/08/23 15:32 17:44 Temperature 37.1 C Heart Rate 98 100 Respiratory 18 18 Rate Blood Pressure 139/78 H 157/91 H O2 Saturation 97 98 Oxygen O2 Source Room air - Rads (name of study) shoulder Relevant Findings:: Prelim report reviewed (Impression: No acute osseous finding. Calcific tendinosis. Mild acromioclavicular osteoarthritis.), EMP independent interpretation of test, See rad report PD Medical Decision Making - ED course Complexity details: considered differential, d/w patient ED course: 42-year-old female returns to the emerged part for suture removal and complaint of persistence of pain in her right shoulder. She has her arm in a sling for a fracture of her elbow and here we have removed her sutures without incident. We have x-rayed her shoulder and it does look like she has some calcific tendinitis. I discussed the findings with the patient and encouraged her to remove her arm from the sling multiple times a day to do range of motion and we will refill her Percocet for her radial head fracture. Departure - Departure Disposition: 01 Home, Self Care Clinical Impression: Calcific tendinitis of right shoulder, Encounter for removal of sutures Condition: Stable Instructions: ED Tendinitis Calcific Follow-Up: Michael Nelson MD [Provider Admit Priv/Credential] - Prescriptions: Oxycodone HCl/Acetaminophen [Percocet 5-325 mg Tablet] 1 - 2 each PO Q6H PRN #14 tablet PRN Reason: pain Forms: PCP List
--- NOTE | 2023-03-08 17:45 | XRAY Report ---
PROCEDURE: Shoulder 3 View RT INDICATIONS: recent trauma worsening pain TECHNIQUE: 3 views of the shoulder were acquired. COMPARISON: None. FINDINGS: Bones: No fractures or dislocations. No suspicious bony lesions. Visualized ribs appear intact. Calcification along the humeral head consistent with calcific tendinosis. Osteoarthritic changes of t he acromioclavicular joint Soft tissues: No suspicious soft tissue calcifications. The visualized lungs are within normal limi ts. IMPRESSION: No acute osseous finding. Calcific tendinosis. Mild acromioclavicular osteoarthrosis. Reviewed by: Navi Thompson MD on 03/08/2023 4:44 PM [place] Approved by: Navi Thompson MD on 03/08/2023 4:44 PM [place] Station ID: [id number]
[2023-03-08 17:52] VITALS: BP 157/91; O2SAT 98
== END 2023-03-08 18:03 | disposition home or self-care (01) ==
LOC: ED 15:15
DX: S01.81XD Laceration without foreign body of other part of head, subsequent encounter (principal); W10.9XXD Fall (on) (from) unspecified stairs and steps, subsequent encounter; M65.221 Calcific tendinitis, right upper arm; I10 Essential (primary) hypertension; F17.200 Nicotine dependence, unspecified, uncomplicated
CPT/HCPCS: 99283; 99284

== ENCOUNTER 2023-03-13 08:00 | Outpatient (CLI) | payer BC ==
--- NOTE | 2023-03-13 11:48 | XRAY Report ---
PROCEDURE: Elbow 3 View RT INDICATIONS: RIGHT ELBOW PAIN TECHNIQUE: 3 views of the elbow were acquired. COMPARISON: X-ray right elbow 03/05/2023. FINDINGS: Bones: Stable appearance of alignment of radial head fracture. Possible coronoid process fracture is redemonstrated. No suspicious bony lesions. Soft tissues: Moderate effusion. No suspicious soft tissue calcifications or masses. IMPRESSION: Stable appearance of radial head fracture. Possible coronoid process fractures redemonstrated. Modera te joint effusion. Reviewed by: Jurgen Bains MD on 03/13/2023 11:47 AM PST Approved by: Jurgen Bains MD on 03/13/2023 11:47 AM PST Station ID: [id number]
== END 2023-03-13 23:59 | disposition home or self-care (01) ==
LOC: DI.WOS 08:00
PROVIDERS: ATTEND Orthopaedic Surgery
DX: S52.121D Displaced fracture of head of right radius, subsequent encounter for closed fracture with routine healing (principal)